=== PATIENT | female | born 1955 | race Caucasian/White ===

== ENCOUNTER 2018-06-09 08:29 | Outpatient (CLI) | payer OTHER ==
--- NOTE | 2018-06-09 14:24 | NM ---
CARDIAC SPECT: CLINICAL HISTORY: 62-year-old female with hypercholesterolemia, dyslipidemia. TECHNIQUE: A myocardial perfusion scan was performed using the single isotope one day protocol with technetium-9 9m sestamibi. 10 mCi were injected intravenously for the rest exam followed by 27 mCi for the stress exam. Exercise stress was monitored and interpreted by Reva Palacios NP. FINDINGS: Homogeneous tracer distribution is seen in the myocardial segments on stress and rest images without fixed or reversible defects. GATED SPECT LVEF: 74%. WALL MOTION EXAM: Normal. IMPRESSION: Normal myocardial perfusion scan. POS: [id number]
== END 2018-06-09 08:30 | disposition home or self-care (01) ==
LOC: NM 08:29
PROVIDERS: ATTEND Family Medicine
DX: E78.00 Pure hypercholesterolemia, unspecified (principal)
CPT/HCPCS: 78452; 93017; A9500